=== PATIENT | male | born 1960 | race Caucasian/White ===

== ENCOUNTER 2016-11-11 14:59 | Emergency (ER) | payer SELFPAY ==
[2016-11-11] MEDS ORDERED: HYDROCODONE/ACETAMINOPHEN 5-325 MG TABLET PO ONE ×2 (15:31→17:07)
--- NOTE | 2016-11-11 15:39 | ER Document Report ---
ED Medical Screen (RME) - General Chief Complaint: Finger Injury Stated Complaint: HAND INJURY Mode of Arrival: Ambulatory Information source: Patient Notes: 56 y/o M presents to ED c/o laceration and nail injury to left thumb with saw. States tetanus up to date. I have greeted and performed a rapid initial assessment of this patient. A comprehensive ED assessment and evaluation of the patient, analysis of test results and completion of the medical decision making process will be conducted by additional ED providers. TRAVEL OUTSIDE OF THE [place] IN LAST 30 DAYS: No - Related Data Allergies/Adverse Reactions: No Known Allergies Allergy (Unverified 07/24/11 13:16) Past Medical History - Social History Chew tobacco use (# tins/day): No Frequency of alcohol use: None Drug Abuse: None Pulmonary Medical History: Reports: Hx Asthma Renal/ Medical History: Denies: Hx Peritoneal Dialysis - Immunizations Hx Diphtheria, Pertussis, Tetanus Vaccination: Yes - 07/10/2012 Physical Exam - Vital signs Vitals: Temp Pulse Resp BP Pulse Ox 97.7 F 66 16 142/85 H 96 11/11/16 15:26 11/11/16 15:26 11/11/16 15:26 11/11/16 15:26 11/11/16 15:26 - General General appearance: Appears well, Alert In distress: None - Cardiovascular Normal capillary refill: Yes Course - Vital Signs Vital signs: Temp Pulse Resp BP Pulse Ox 97.7 F 66 16 142/85 H 96 11/11/16 15:26 11/11/16 15:26 11/11/16 15:26 11/11/16 15:26 11/11/16 15:26
[2016-11-11] MEDS ORDERED: LIDOCAINE 1% INJ-PF (10 MG/ML) 30 ML SDV INJ ONE (17:12)
[2016-11-11] MEDS ORDERED: CEPHALEXIN 500 MG CAPSULE PO ONE (18:06)
--- NOTE | 2016-11-11 18:14 | ER Document Report ---
HPI - HPI Patient complains to provider of: pulled nail up with saw Onset: This afternoon Onset/Duration: Sudden Quality of pain: Burning, Throbbing Pain Level: 5 Context: 56 yo male pulled left thumb nail almost completely off with a saw. Xray is negative. Tetanus current. Associated Symptoms: None Exacerbated by: Movement Relieved by: Denies Similar symptoms previously: No Recently seen / treated by doctor: No - ROS ROS below otherwise negative: Yes Systems Reviewed and Negative: Yes All other systems reviewed and negative - DERM Skin Color: Normal Past Medical History - General Information source: Patient - Social History Smoking Status: Never Smoker Chew tobacco use (# tins/day): No Frequency of alcohol use: None Drug Abuse: None Lives with: Spouse/Significant other Family History: Reviewed & Not Pertinent Patient has suicidal ideation: No Patient has homicidal ideation: No Pulmonary Medical History: Reports: Hx Asthma Renal/ Medical History: Denies: Hx Peritoneal Dialysis Surgical Hx: Negative - Immunizations Hx Diphtheria, Pertussis, Tetanus Vaccination: Yes - 07/10/2012 Vertical Provider Document - CONSTITUTIONAL Agree With Documented VS: Yes Exam Limitations: No Limitations General Appearance: No Apparent Distress - INFECTION CONTROL TRAVEL OUTSIDE OF THE [place] IN LAST 30 DAYS: No - HEENT HEENT: Normocephalic - NECK Neck: Supple - RESPIRATORY O2 Sat by Pulse Oximetry: 96 - MUSCULOSKELETAL/EXTREMETIES Musculoskeletal/Extremeties: MAEW, FROM, Tender - left htumb nail - NEURO Level of Consciousness: Awake, Alert Motor/Sensory: No Motor Deficit, No Sensory Deficit Course - Re-evaluation Re-evalutation: 11/11/16 dr venegas looked at the nail, no ability to repair the nailbed, suspect that the nail matrix is intact. - Vital Signs Vital signs: Temp Pulse Resp BP Pulse Ox 97.7 F 66 16 142/85 H 96 11/11/16 15:26 11/11/16 15:26 11/11/16 15:26 11/11/16 15:26 11/11/16 15:26 Procedures - Laceration/Wound Repair Left Thumb Time completed: 18:22 Wound length (cm): 1 Wound's Depth, Shape: Nail-avulsed Laceration pre-procedure: Other - surgiscrub Anesthetic type: 1% Lidocaine - finger block Wound explored: Clean Post-procedure wound care: Sterile dressing applied - bacitracin and vaseline gauze Post-procedure NV exam normal: Yes Complications: No Discharge - Discharge Clinical Impression: Nail bed injury Nail avulsion Qualifiers: Encounter type: initial encounter Qualified Code(s): S61.309A - Unspecified open wound of unspecified finger with damage to nail, initial encounter Condition: Good Disposition: HOME, SELF-CARE Instructions: Avulsed Nail ([facility]), Cephalexin ([facility]), Oral Narcotic Medication ( [facility]) Additional Instructions: soak in epsom salts tomorrow, warm water bacitracin non stick dressing see the hand orthopedic doctor for recheck next week to er any concerns Prescriptions: Hydrocodone/Acetaminophen [Lorcet 5-325 mg Tablet] 1 each PO Q4HP PRN #15 tablet PRN Reason: Cephalexin Monohydrate [Keflex 500 mg Capsule] 500 mg PO QID #20 capsule Forms: Return to Work Referrals: LAQUITA CAST DO [ACTIVE STAFF] - Follow up as needed
[2016-11-11 18:44] VITALS: BP 160/90
== END 2016-11-11 18:40 | disposition home or self-care (01) ==
LOC: ER 14:59
DX: S61.102A Unspecified open wound of left thumb with damage to nail, initial encounter (principal); W27.8XXA Contact with other nonpowered hand tool, initial encounter; J45.909 Unspecified asthma, uncomplicated
CPT/HCPCS: 99282; 73140; J3490

== ENCOUNTER 2016-11-17 12:03 | Emergency (ER) | payer SELFPAY ==
[2016-11-17] MEDS ORDERED: NAPROXEN 250 MG TABLET PO ONE (12:16)
--- NOTE | 2016-11-17 12:19 | ER Document Report ---
ED Medical Screen (RME) - General Chief Complaint: Hand Pain Stated Complaint: FINGER PAIN Mode of Arrival: Ambulatory Information source: Patient Notes: 56 y/o M presents to ED c/o pain to left thumb. Pt reports was seen in ED last monday for injury to thumb and nail. Reports has completed course of prescribed Keflex and ran out of pain medication but pain is persistent. Denies fever. I have greeted and performed a rapid initial assessment of this patient. A comprehensive ED assessment and evaluation of the patient, analysis of test results and completion of the medical decision making process will be conducted by additional ED providers. TRAVEL OUTSIDE OF THE [place] IN LAST 30 DAYS: No - Related Data Allergies/Adverse Reactions: No Known Allergies Allergy (Verified 11/17/16 12:15) Past Medical History Pulmonary Medical History: Reports: Hx Asthma Renal/ Medical History: Denies: Hx Peritoneal Dialysis - Immunizations Hx Diphtheria, Pertussis, Tetanus Vaccination: Yes - 07/10/2012 Physical Exam - Vital signs Vitals: Temp Pulse Resp BP Pulse Ox 97.7 F 72 16 150/86 H 97 11/17/16 12:10 11/17/16 12:10 11/17/16 12:10 11/17/16 12:10 11/17/16 12:10 - General General appearance: Appears well, Alert In distress: None - Respiratory Respiratory status: No respiratory distress Course - Vital Signs Vital signs: Temp Pulse Resp BP Pulse Ox 97.7 F 72 16 150/86 H 97 11/17/16 12:10 11/17/16 12:10 11/17/16 12:10 11/17/16 12:10 11/17/16 12:10
--- NOTE | 2016-11-17 15:33 | ER Document Report ---
HPI - HPI Patient complains to provider of: left thumb pain Onset: Last week Onset/Duration: Sudden Quality of pain: Throbbing Severity: Moderate Pain Level: 4 Context: This is a 56-year-old man then initially injured his left thumb with a saw. The left thumb fingernail was traumatically removed. He was placed on antibiotics for 5 days and pain medicine. He presents with persistent pain and throbbing to the digit. He denies any fever, discharge. He states that the wound is otherwise healing well. Associated Symptoms: denies: Fever Exacerbated by: Movement Relieved by: Remaining still Similar symptoms previously: Yes Recently seen / treated by doctor: Yes - ROS ROS below otherwise negative: Yes - CONSTITUTIONAL Constitutional: DENIES: Fever, Chills - EENT EENT: DENIES: Sore Throat - NEURO Neurology: DENIES: Headache - CARDIOVASCULAR Cardiovascular: DENIES: Chest pain - RESPIRATORY Respiratory: DENIES: Trouble Breathing - DERM Skin Color: Normal Past Medical History - General Information source: Patient - Social History Smoking Status: Current Every Day Smoker Chew tobacco use (# tins/day): No Frequency of alcohol use: None Drug Abuse: None Lives with: Family Family History: Reviewed & Not Pertinent Patient has suicidal ideation: No Patient has homicidal ideation: No - Medical History Medical History: Negative Pulmonary Medical History: Reports: Hx Asthma Renal/ Medical History: Denies: Hx Peritoneal Dialysis Surgical Hx: Other - Immunizations Hx Diphtheria, Pertussis, Tetanus Vaccination: Yes - 07/10/2012 Vertical Provider Document - CONSTITUTIONAL Agree With Documented VS: - Noncontributory - INFECTION CONTROL TRAVEL OUTSIDE OF THE [place] IN LAST 30 DAYS: No - HEENT HEENT: Atraumatic - RESPIRATORY O2 Sat by Pulse Oximetry: 97 - MUSCULOSKELETAL/EXTREMETIES Notes: Left thumb nail bed is healing. There is no pus discharge, foul smell, erythema or warmth. The fingertip is otherwise clear with good capillary refill. There is no obvious foreign bodies or erythema of the pulp. - NEURO Level of Consciousness: Awake, Alert, Appropriate Course - Re-evaluation Re-evalutation: 11/17/16 15:30 Note: I do not see any evidence of infection at this point. I have discussed that with the patient given him signs and symptoms to look out for. I think I will extend the antibiotics and the pain medicines for another 5-7 days. I will give him the follow-up appointment with the hand surgeon. His tetanus is up-to-date. I did review the x-rays from the and there does not appear to be any bony involvement. The wound will be redressed with Xeroform and a bulky dressing. 11/17/16 15:32 - Vital Signs Vital signs: Temp Pulse Resp BP Pulse Ox 97.7 F 72 16 150/86 H 97 11/17/16 12:10 11/17/16 12:10 11/17/16 12:10 11/17/16 12:10 11/17/16 12:10 Discharge - Discharge Clinical Impression: healing finger injury, left thumb Condition: Stable Disposition: HOME, SELF-CARE Instructions: Oral Narcotic Medication ([facility]) Additional Instructions: Recommendations: As we discussed, the finger does appear to be healing, it will take some time. Continue to watch for signs of insect infection: Increasing redness, swelling or pus discharge from the wound. Increasing pain. You can follow-up with the hand surgeon who is affiliated with the hospital: I left the number on the chart. See the narcotic instruction sheets. Continue the antibiotics for another 5 days. Prescriptions: Cephalexin Monohydrate [Keflex 500 mg Capsule] 500 mg PO QID #20 capsule Oxycodone HCl/Acetaminophen [Percocet 5-325 mg Tablet] 1 - 2 tab PO ASDIR PRN # 25 tablet PRN Reason: Referrals: LAQUITA CAST DO [ACTIVE STAFF] - Follow up in 3-5 days (This is the number for the orthopedic surgeon)
[2016-11-17 15:54] VITALS: BP 143/81
== END 2016-11-17 15:54 | disposition home or self-care (01) ==
LOC: ER 12:03
DX: S61.112D Laceration without foreign body of left thumb with damage to nail, subsequent encounter (principal); M79.645 Pain in left finger(s); W27.8XXD Contact with other nonpowered hand tool, subsequent encounter; F17.200 Nicotine dependence, unspecified, uncomplicated; J45.909 Unspecified asthma, uncomplicated
CPT/HCPCS: 99283

== ENCOUNTER 2017-05-15 11:20 | Emergency (ER) | payer SELFPAY ==
[2017-05-15] MEDS ORDERED: ASPIRIN 81 MG TABLET, CHEWABLE PO ONE (11:35)
--- NOTE | 2017-05-15 11:47 | ER Document Report ---
ED Medical Screen (RME) - General Chief Complaint: Chest Wall Pain Stated Complaint: CHEST PAIN Time Seen by Provider: 05/15/17 11:46 Notes: The patient is a 56-year-old male, current smoker, presents with 2 days of chest pain that started on the right side and is now on the left side. Describes it as a pressure and has never had this before. Denies shortness of breath, back pain, numbness, tingling, nausea, vomiting or leg swelling. PE: Uncomfortable. RRR. Lungs CTAB. I have greeted and performed a rapid initial assessment of this patient. A comprehensive ED assessment and evaluation of the patient, analysis of test results and completion of the medical decision making process will be conducted by additional ED providers. TRAVEL OUTSIDE OF THE [place] IN LAST 30 DAYS: No - Related Data Allergies/Adverse Reactions: No Known Allergies Allergy (Verified 05/15/17 11:43) Home Medications: Current Home Medications No Home Medications 05/15/17 [History] Past Medical History Pulmonary Medical History: Reports: Hx Asthma Renal/ Medical History: Denies: Hx Peritoneal Dialysis - Immunizations Hx Diphtheria, Pertussis, Tetanus Vaccination: Yes - 07/10/2012
[2017-05-15 12:11] LABS: ABSOLUTE BASOPHILS # (AUTO) 0.1 10^3/uL (0.0-0.2); ABSOLUTE EOSINOPHILS # (AUTO) 0.2 10^3/uL (0.0-0.6); ABSOLUTE NEUT (AUTO) 7.9 10^3/uL (1.7-8.2); BASOPHILS % (AUTO) 0.5 % (0-2); EOSINOPHILS % (AUTO) 1.9 % (0-6); HEMATOCRIT 46.3 % (37.9-51.0); HEMOGLOBIN 16.3 g/dL (13.5-17.0); HGB HCT DIFFERENCE 2.6; LYMPHOCYTES % (AUTO) 17.7 % (13-45); MEAN CORPUSCULAR HEMOGLOBIN 33.7 pg (27.0-33.4); MEAN CORPUSCULAR HGB CONC 35.2 g/dL (32.0-36.0); MEAN CORPUSCULAR VOLUME 96 fl (80-97); MONOCYTES % (AUTO) 9.2 % (3-13); RED BLOOD COUNT 4.83 10^6/uL (4.35-5.55); RED CELL DISTRIBUTION WIDTH 12.4 % (11.5-14.0); SEGMENTED NEUTROPHILS % (AUTO) 70.7 % (42-78); WHITE BLOOD COUNT 11.2 10^3/uL (4.0-10.5)
[2017-05-15] MEDS ORDERED: KETOROLAC TROMETHAMINE 60 MG/2 ML SDV IM ONE (12:12)
--- NOTE | 2017-05-15 12:12 | ER Document Report ---
ED General - General Mode of Arrival: Ambulatory Information source: Patient TRAVEL OUTSIDE OF THE [place] IN LAST 30 DAYS: No - HPI Onset: Other - Monday, refer to notes Similar symptoms previously: No Recently seen / treated by doctor: No <SANYA ISSA - Last Filed: 05/15/17 13:27> <JOAQUIN GAFFNEYMY - Last Filed: 05/15/17 19:32> - General Chief Complaint: Chest Wall Pain Stated Complaint: CHEST PAIN Time Seen by Provider: 05/15/17 11:46 Notes: Patient is a 56 year old male presenting to the emergency department for left- sided chest pain and left shoulder pain since Monday. 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 Patient states he felt a pull at this time and he rested a lot over the weekend. Patient states he didn't noticed much pain until he returned to work today and he had pain with movement, breathing, and coughing. Patient states he took Motrin this morning which did not relieve his pain very much. Patient states he does have a history of asthma but denies any dyspnea. Patient denies any history of ND or blood clots. Patient does not have insurance or a primary care physician. Patient has no known drug allergies. ( SANYA ISSA) - Related Data Allergies/Adverse Reactions: No Known Allergies Allergy (Verified 05/15/17 11:43) Past Medical History - General Information source: Patient - Social History Smoking Status: Never Smoker Cigarette use (# per day): No Chew tobacco use (# tins/day): No Smoking Education Provided: No Frequency of alcohol use: Social Drug Abuse: None Family History: None Patient has suicidal ideation: No Patient has homicidal ideation: No Pulmonary Medical History: Reports: Hx Asthma Surgical Hx: Negative - Immunizations Hx Diphtheria, Pertussis, Tetanus Vaccination: Yes - 07/10/2012 <SANYA ISSA - Last Filed: 05/15/17 13:27> Review of Systems - Review of Systems Constitutional: No symptoms reported EENT: No symptoms reported Cardiovascular: See HPI, Chest pain Respiratory: No symptoms reported Gastrointestinal: No symptoms reported Genitourinary: No symptoms reported Male Genitourinary: No symptoms reported Musculoskeletal: See HPI Skin: No symptoms reported Hematologic/Lymphatic: No symptoms reported Neurological/Psychological: No symptoms reported -: Yes All other systems reviewed and negative <SANYA ISSA - Last Filed: 05/15/17 13:27> Physical Exam - Vital signs Interpretation: Hypertensive <SANYA ISSA - Last Filed: 05/15/17 13:27> <GULSHANNACHO - Last Filed: 05/15/17 19:32> - Vital signs Vitals: Temp Pulse Resp BP Pulse Ox 97.7 F 87 20 155/95 H 97 05/15/17 11:38 05/15/17 11:38 05/15/17 11:38 05/15/17 11:38 05/15/17 11:38 - Notes Notes: GENERAL: Alert, interacts well. No acute distress. HEAD: Normocephalic, atraumatic. EYES: Appear normal. Pupils equal, round, and reactive to light. ENT: Moist mucus membranes, tongue midline. NECK: Full range of motion. Supple. Trachea midline. LUNGS: Clear to auscultation bilaterally, no wheezes, rales, or rhonchi. No respiratory distress. Left-sided anterior chest wall tenderness to palpation. HEART: Regular rate and rhythm. No murmurs, gallops, or rubs. ABDOMEN: Soft, non-tender. Non-distended. Normal bowel sounds. EXTREMITIES: Moves all 4 extremities spontaneously. Normal strength. No edema. NEUROLOGICAL: Alert and oriented x3. Normal speech. No focal neurological deficits. GSC 15. PSYCH: Normal affect, normal mood. SKIN: Warm, dry, normal turgor. No rashes or lesions noted. (SANYA ISSA) Course - Laboratory Result Diagrams: 05/15/17 11:50 05/15/17 11:50 <SANYA ISSA - Last Filed: 05/15/17 13:27> - Laboratory Result Diagrams: 05/15/17 11:50 05/15/17 11:50 <NACHO GAFFNEY - Last Filed: 05/15/17 19:32> - Re-evaluation Re-evalutation: 05/15/17 14:15 Patient presents the emergency department chief complaint anterior chest wall pain and hurts when he takes a deep breath or palpation after lifting a ladder 2 days ago. 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 [place] fine the following day and later in the evening and then 2 days later he started to have pain in the muscles of his chest. When he moves a certain direction. He has not taken anything for this at home other than the medicinal marijuana that he smokes. He denies any recent history of travel surgery immobilization DVT or pulmonary emboli had denies any history of hypertension diabetes hyperlipidemia smoking ND or family history of heart disease. He does not primary care physician does not take any medications on examination well-appearing nontoxic reproducible musculoskeletal pain to the anterior chest wall. EKG is but in accelerated junctional rhythm. Troponin is negative chest x-ray is negative. I do not feel this is an acute ND PE or dissection. I think this is chest wall pain secondary to lifting a ladder muscle strain. He does smoke marijuana and aches when he coughs. But I do not appreciate any evidence of pneumonia, and I am not clinically concerning for ND PE or dissection. I given a prescription for Naprosyn a family doctor for follow-up work excuse for today and tomorrow and discussed reasons for ED return sooner (NACHO GAFFNEY) - Vital Signs Vital signs: Temp Pulse Resp BP Pulse Ox 97.9 F 87 21 H 153/98 H 99 05/15/17 15:01 05/15/17 11:38 05/15/17 14:54 05/15/17 14:55 05/15/17 14:54 - Laboratory Laboratory results interpreted by me: 05/15/17 05/15/17 05/15/17 11:50 11:50 11:50 WBC 11.2 H MCH 33.7 H Glucose 133 H Calcium 10.6 H Magnesium 2.4 H Direct Bilirubin 0.5 H Creatine Kinase 472 H Total Protein 9.6 H Albumin 5.5 H Discharge <SANYA ISSA - Last Filed: 05/15/17 13:27> <NACHO GAFFNEY - Last Filed: 05/15/17 19:32> - Discharge Clinical Impression: Acute muscle strain anterior chest wall Condition: Stable Disposition: HOME, SELF-CARE Additional Instructions: Chest Wall Pain Your chest pain has been diagnosed as coming from the chest wall. This is often caused by straining the muscles or joints in the chest during physical activity, direct trauma, coughing, or vigorous vomiting. Persons with arthritis are especially prone to this type of pain, due to inflammation of the cartilage joints near the breast bone. Occasionally, no cause can be found. Rest from strenuous physical activity. This kind of chest pain is usually made worse by movement of the chest. Depending on the symptoms, we may prescribe medicine for pain, muscle relaxation, and antiinflammatory effects. If the pain is new, and seems to be due to muscle strain, cold packs can help. Otherwise, apply gentle warmth to the painful area for 15 minutes every hour or two. You should contact the doctor immediately if things change. Further evaluation is needed if you develop a fever or cough, if the nature of the pain changes, or if you become short of breath. Prescriptions: Naproxen [Naprosyn 250 mg Tablet] 250 mg PO DAILY PRN #12 tablet PRN Reason: Referrals: [facility] [Provider Group] - Follow up in 3-5 days (Return to the emergency department sooner for increased worsening or new symptoms) Scribe Attestation: 05/15/17 14:15 I personally performed the services described in the documentation reviewed the documentation recorded by my scribe in my presence and it accurately and completely records my words and actions (NACHO GAFFNEY) Scribe Documentation - Scribe Written by Mervin:: Mervin Motta, 05/15/2017 14:08 acting as scribe for :: Gulshan <SANYA ISSA - Last Filed: 05/15/17 13:27>
--- NOTE | 2017-05-15 12:37 | RADIOLOGY REPORT (SQ) ---
EXAM DESCRIPTION: CHEST SINGLE VIEW COMPLETED DATE/TIME: 05/15/2017 12:03 pm REASON FOR STUDY: chest pain COMPARISON: None. EXAM PARAMETERS: NUMBER OF VIEWS: One view. TECHNIQUE: Single frontal radiographic view of the chest acquired. RADIATION DOSE: NA LIMITATIONS: None. FINDINGS: LUNGS AND PLEURA: No opacities, masses or pneumothorax. No pleural effusion. MEDIASTINUM AND HILAR STRUCTURES: No masses. Contour normal. HEART AND VASCULAR STRUCTURES: Heart normal in size. Normal vasculature. BONES: No acute findings. HARDWARE: None in the chest. OTHER: No other significant finding. IMPRESSION: NO ACUTE RADIOGRAPHIC FINDING IN THE CHEST. TECHNICAL DOCUMENTATION: JOB ID: [id number]
[2017-05-15 12:39] LABS: ALANINE AMINOTRANSFERASE 44 U/L (21-72); ALBUMIN 5.5 g/dL (3.5-5.0); ALKALINE PHOSPHATASE 120 U/L (38-126); ANION GAP 12 (5-19); ASPARTATE AMINO TRANSFERASE 39 U/L (17-59); BILIRUBIN,DIRECT 0.5 mg/dL (0.0-0.4); BILIRUBIN,TOTAL 0.9 mg/dL (0.2-1.3); BLOOD UREA NITROGEN 13 mg/dL (7-20); CALCIUM 10.6 mg/dL (8.4-10.2); CARBON DIOXIDE 24 mmol/L (22-30); CHLORIDE 102 mmol/L (98-107); CREATINE KINASE 472 U/L (55-170); CREATININE RESULT 1.21 mg/dL (0.52-1.25); GLUCOSE 133 mg/dL (75-110); POTASSIUM 4.4 mmol/L (3.6-5.0); SODIUM 138.1 mmol/L (137-145); TOTAL PROTEIN 9.6 g/dL (6.3-8.2)
[2017-05-15 12:40] LABS: LIPASE 136.5 U/L (23-300); MAGNESIUM 2.4 mg/dL (1.6-2.3)
[2017-05-15 12:57] LABS: CREATINE KINASE MB 2.39 ng/mL (<4.55)
[2017-05-15 13:01] LABS: TROPONIN I < 0.012 ng/mL
[2017-05-15 13:20] LABS: URINE BARBITURATES SCREEN NEGATIVE; URINE METHADONE SCREEN NEGATIVE; URINE OPIATES LOW NEGATIVE; URINE PHENCYCLIDINE SCREEN NEGATIVE
[2017-05-15 15:01] VITALS: BP 153/98
--- NOTE | 2017-05-15 20:14 | EKG REPORT ---
SEVERITY:- ABNORMAL ECG - SINUS RHYTHM : Confirmed by: Peewee Guzman 15-May-2017 20:13:11
== END 2017-05-15 15:02 | disposition home or self-care (01) ==
LOC: ER 11:20
DX: S29.011A Strain of muscle and tendon of front wall of thorax, initial encounter (principal); M25.512 Pain in left shoulder; X50.0XXA Overexertion from strenuous movement or load, initial encounter; Y99.0 Civilian activity done for income or pay
CPT/HCPCS: 93005; 99285; 96372; 36415; 82553; 82550; 83690; 83735; 85025; 80053; 84484; 80307; 71010; 93010; J1885